=== PATIENT | female | born 1955 | race Caucasian/White ===

== ENCOUNTER 2020-01-12 15:49 | Inpatient (IN) | payer BC, MEDICARE ==
[~2020-01-12] VITALS: Ht 157.5 cm; Wt 55.3 kg
[2020-01-12 17:15] VITALS: BP 121/64
[2020-01-12] MEDS ORDERED: DEXTRAN 70 0.1%/HYPROMELL 0.3% 0.9 ML OPHTHALMIC SOLUTION [PF] OU PRN (18:00)
[2020-01-12] MEDS ORDERED: HYDROCODONE/ACETAMINOPHEN 10-325 MG TABLET PO PRN (18:00)
[2020-01-12] MEDS ORDERED: TraZODone HCL 50 MG TABLET PO PRN (18:00)
[2020-01-12] MEDS ORDERED: HYDROCODONE/ACETAMINOPHEN 5-325 MG TABLET PO PRN (18:00)
[2020-01-12] MEDS ORDERED: MULTIVITAMINS WITH MINERALS, THERAPEUTIC TABLET PO ONE (18:00)
[2020-01-12] MEDS ORDERED: BISACODYL 10 MG RECTAL RECTAL SUPPOSITORY PR PRN (18:00)
[2020-01-12] MEDS: OMEPRAZOLE 20 MG CAPSULE PO SCH (18:28)
[2020-01-12 18:52] LABS: GLUCOMETER DEV NAME(LOC) 6N.1; GLUCOSE,POINT OF CARE 113 MG/DL (70-110)
[2020-01-12] MEDS: DOCUSATE SODIUM 100 MG CAPSULE PO SCH (20:21)
[2020-01-12] MEDS: ENOXAPARIN SODIUM 40 MG/0.4 ML PF SYRINGE SQ SCH (20:21)
[2020-01-12] MEDS: LevETIRAcetam 500 MG TABLET PO SCH (20:21)
[2020-01-12] MEDS: TAMSULOSIN HCL 0.4 MG CAPSULE PO SCH (20:21)
[2020-01-12] MEDS ORDERED: SENNA 187 MG TABLET PO SCH (21:00)
[2020-01-13 05:00] VITALS: BP 113/61
[2020-01-13] MEDS ORDERED: DEXAMETHASONE 2 MG TABLET PO ONE (09:00)
[2020-01-13 09:02] VITALS: BP 106/62
[2020-01-13 09:23] LABS: HEMATOCRIT 34.8 % (36-46); HEMOGLOBIN 11.4 g/dL (12.0-16.0); MEAN CORPUSCULAR HEMOGLOBIN 27.1 pg (26.0-34.0); MEAN CORPUSCULAR HGB CONC 32.7 G/dL (31.0-37.0); MEAN CORPUSCULAR VOLUME 83 fL (80-100); PLATELET COUNT (AUTO) 123 K/uL (150-450); RED BLOOD CELL COUNT(AUTO) 4.19 MIL/uL (4.00-5.20); RED CELL DISTRIBUTION WIDTH 17.7 % (11.5-14.5)
[2020-01-13 09:33] LABS: ALANINE AMINOTRANSFERASE 104 U/L (12-78); ALBUMIN 2.5 g/dL (3.4-5.0); ALKALINE PHOSPHATASE 96 U/L (46-116); ANION GAP 8 mmol/L (8-16); ASPARTATE AMINOTRANSFERASE 33 U/L (15-37); BILIRUBIN,TOTAL 0.7 mg/dL (0.1-1.0); CALCIUM, TOTAL 8.5 mg/dL (8.8-10.5); CARBON DIOXIDE 28 mmol/L (22-29); CHLORIDE 103 mmol/L (98-107); CREATININE 0.31 mg/dL (0.60-1.30); GLOMERULAR FILTR. RATE CALC > 60 mL/min (>60); GLUCOSE,RANDOM 86 mg/dL (70-110); POTASSIUM 3.5 mmol/L (3.5-5.1); SODIUM SERUM 139 mmol/L (136-145); TOTAL PROTEIN, SERUM 5.5 g/dL (6.4-8.2); UREA NITROGEN, BLOOD 25 mg/dL (7-18)
[2020-01-13 10:11] VITALS: BP 128/63
[2020-01-13] MEDS: LevETIRAcetam 500 MG TABLET PO SCH ×2 (10:12→20:44)
[2020-01-13] MEDS: OMEPRAZOLE 20 MG CAPSULE PO SCH (10:12)
[2020-01-13] MEDS: LOSARTAN POTASSIUM 25 MG TABLET PO SCH (10:12)
[2020-01-13] MEDS: AmLODIPine BESYLATE 10 MG TABLET PO SCH (10:12)
[2020-01-13] MEDS: ENOXAPARIN SODIUM 40 MG/0.4 ML PF SYRINGE SQ SCH (10:13)
[2020-01-13] MEDS: DOCUSATE SODIUM 100 MG CAPSULE PO SCH (10:13)
[2020-01-13 11:40] LABS: BAND NEUTROPHILS % (MANUAL) 1 % (0-5); LYMPHOCYTES % (MANUAL) 65 % (22-44); MONOCYTES % (MANUAL) 5 % (2-9); SEGMENTED NEUTROPHILS % 29 % (40-70)
[2020-01-13 11:42] LABS: WBC MORPHOLOGY SMUDGE CELLS PRESENT
[2020-01-13 12:42] LABS: APPEARANCE,URINE CLOUDY (CLEAR); BILIRUBIN,URINE NEGATIVE (NEGATIVE); GLUCOSE, URINE (UA) NEGATIVE (NEGATIVE); KETONES,URINE NEGATIVE (NEGATIVE); LEUKOCYTE ESTERASE ,URINE LARGE (NEGATIVE); NITRATE,URINE POSITIVE (NEGATIVE); OCCULT BLOOD,URINE SMALL (NEGATIVE); PH,URINE 5.5 (5.0-8.0); PROTEIN,URINE NEGATIVE (NEGATIVE); UROBILINOGEN,URINE 0.2 mg/dL (<=1.0)
[2020-01-13 13:18] LABS: BACTERIA,URINE Moderate /HPF (None Seen); SQUAMOUS EPITHELIAL CELL,UR Few /LPF (None Seen); WBC,URINE 51-100 /HPF (0-5)
[2020-01-13] MEDS ORDERED: SENNA 187 MG TABLET PO PRN (15:30)
[2020-01-13 16:00] VITALS: BP 105/61
[2020-01-13] MEDS: TAMSULOSIN HCL 0.4 MG CAPSULE PO SCH (20:45)
[2020-01-13 23:33] VITALS: BP 113/63
[2020-01-14 09:00] VITALS: BP 100/58
[2020-01-14] MEDS: LOSARTAN POTASSIUM 25 MG TABLET PO SCH (09:49)
[2020-01-14] MEDS: ENOXAPARIN SODIUM 40 MG/0.4 ML PF SYRINGE SQ SCH (09:49)
[2020-01-14] MEDS: AmLODIPine BESYLATE 10 MG TABLET PO SCH (09:49)
[2020-01-14] MEDS: LevETIRAcetam 500 MG TABLET PO SCH ×2 (09:50→20:12)
[2020-01-14] MEDS: MULTIVITAMINS WITH MINERALS, THERAPEUTIC TABLET PO SCH (09:51)
[2020-01-14] MEDS: OMEPRAZOLE 20 MG CAPSULE PO SCH (09:51)
[2020-01-14 15:10] VITALS: BP 107/56
[2020-01-14] MEDS: TAMSULOSIN HCL 0.4 MG CAPSULE PO SCH (20:12)
[2020-01-15 01:30] VITALS: BP 110/66
[2020-01-15 08:00] VITALS: BP 135/67
[2020-01-15] MEDS: LOSARTAN POTASSIUM 25 MG TABLET PO SCH (08:36)
[2020-01-15] MEDS: ENOXAPARIN SODIUM 40 MG/0.4 ML PF SYRINGE SQ SCH (08:36)
[2020-01-15] MEDS: LevETIRAcetam 500 MG TABLET PO SCH ×2 (08:36→21:13)
[2020-01-15] MEDS: MULTIVITAMINS WITH MINERALS, THERAPEUTIC TABLET PO SCH (08:36)
[2020-01-15] MEDS: AmLODIPine BESYLATE 10 MG TABLET PO SCH (08:36)
[2020-01-15] MEDS: OMEPRAZOLE 20 MG CAPSULE PO SCH (08:36)
[2020-01-15] MEDS ORDERED: MECLIZINE HCL 25 MG TABLET PO PRN (12:00)
[2020-01-15 16:13] VITALS: BP 118/66
[2020-01-15] MEDS: TAMSULOSIN HCL 0.4 MG CAPSULE PO SCH (21:13)
[2020-01-15 23:59] VITALS: BP 123/67
[2020-01-16 07:55] VITALS: BP 128/66
[2020-01-16] MEDS: AmLODIPine BESYLATE 10 MG TABLET PO SCH (08:23)
[2020-01-16] MEDS: OMEPRAZOLE 20 MG CAPSULE PO SCH (08:23)
[2020-01-16] MEDS: LevETIRAcetam 500 MG TABLET PO SCH ×2 (08:23→21:27)
[2020-01-16] MEDS: MULTIVITAMINS WITH MINERALS, THERAPEUTIC TABLET PO SCH (08:23)
[2020-01-16] MEDS: LOSARTAN POTASSIUM 25 MG TABLET PO SCH (08:23)
[2020-01-16] MEDS: ENOXAPARIN SODIUM 40 MG/0.4 ML PF SYRINGE SQ SCH (08:23)
[2020-01-16] MEDS: SULFAMETHOX/TRIMETH DS 800-160 MG/TABLET PO SCH ×2 (13:15→21:27)
[2020-01-16 16:00] VITALS: BP 108/55
[2020-01-16] MEDS: DOCUSATE SODIUM 100 MG CAPSULE PO PRN (21:27)
[2020-01-16] MEDS: TAMSULOSIN HCL 0.4 MG CAPSULE PO SCH (21:27)
[2020-01-16] MEDS: ZINC OXIDE 40%/COD LIVER OIL 57 GM PASTE TP PRN (21:32)
[2020-01-17 01:21] VITALS: BP 106/57
[2020-01-17 07:50] VITALS: BP 115/67
[2020-01-17 07:51] LABS: ANION GAP 6 mmol/L (8-16); CALCIUM, TOTAL 8.6 mg/dL (8.8-10.5); CARBON DIOXIDE 29 mmol/L (22-29); CHLORIDE 104 mmol/L (98-107); CREATININE 0.63 mg/dL (0.60-1.30); GLOMERULAR FILTR. RATE CALC > 60 mL/min (>60); GLUCOSE,RANDOM 93 mg/dL (70-110); POTASSIUM 3.4 mmol/L (3.5-5.1); SODIUM SERUM 139 mmol/L (136-145); UREA NITROGEN, BLOOD 16 mg/dL (7-18)
[2020-01-17] MEDS: MULTIVITAMINS WITH MINERALS, THERAPEUTIC TABLET PO SCH (08:54)
[2020-01-17] MEDS: LevETIRAcetam 500 MG TABLET PO SCH ×2 (08:54→20:22)
[2020-01-17] MEDS: ENOXAPARIN SODIUM 40 MG/0.4 ML PF SYRINGE SQ SCH (08:54)
[2020-01-17] MEDS: AmLODIPine BESYLATE 10 MG TABLET PO SCH (08:55)
[2020-01-17] MEDS: OMEPRAZOLE 20 MG CAPSULE PO SCH (08:55)
[2020-01-17] MEDS: SULFAMETHOX/TRIMETH DS 800-160 MG/TABLET PO SCH ×2 (08:55→20:23)
[2020-01-17] MEDS: LOSARTAN POTASSIUM 25 MG TABLET PO SCH (08:55)
[2020-01-17 15:00] VITALS: BP 91/51
[2020-01-17 15:30] VITALS: BP 108/57
[2020-01-17 15:32] VITALS: BP 125/56
[2020-01-17] MEDS: TAMSULOSIN HCL 0.4 MG CAPSULE PO SCH (20:25)
[2020-01-17 23:40] VITALS: BP 97/52
[2020-01-17] MEDS: ACETAMINOPHEN 325 MG TABLET PO PRN (23:40)
[2020-01-18] MEDS: OMEPRAZOLE 20 MG CAPSULE PO SCH (08:39)
[2020-01-18] MEDS: ENOXAPARIN SODIUM 40 MG/0.4 ML PF SYRINGE SQ SCH (08:39)
[2020-01-18] MEDS: MULTIVITAMINS WITH MINERALS, THERAPEUTIC TABLET PO SCH (08:39)
[2020-01-18] MEDS: AmLODIPine BESYLATE 10 MG TABLET PO SCH (08:39)
[2020-01-18] MEDS: LevETIRAcetam 500 MG TABLET PO SCH ×2 (08:39→20:54)
[2020-01-18] MEDS: LOSARTAN POTASSIUM 25 MG TABLET PO SCH (08:39)
[2020-01-18] MEDS: SULFAMETHOX/TRIMETH DS 800-160 MG/TABLET PO SCH (08:40)
[2020-01-18 09:00] VITALS: BP 116/63
[2020-01-18 09:20] LABS: ANION GAP 7 mmol/L (8-16); CARBON DIOXIDE 26 mmol/L (22-29); CHLORIDE 104 mmol/L (98-107); CREATININE 0.36 mg/dL (0.60-1.30); GLOMERULAR FILTR. RATE CALC > 60 mL/min (>60); GLUCOSE,RANDOM 91 mg/dL (70-110); POTASSIUM 3.7 mmol/L (3.5-5.1); SODIUM SERUM 137 mmol/L (136-145); UREA NITROGEN, BLOOD 14 mg/dL (7-18)
[2020-01-18] MEDS: AMOX TR/POT CLAV 875 MG/125 MG TABLET PO SCH ×2 (11:35→20:54)
[2020-01-18 12:39] LABS: BASOPHILS % (AUTO) 0.1 % (0.0-2.0); EOSINOPHILS % (AUTO) 0.2 % (1.0-6.0); HEMATOCRIT 36.7 % (36-46); HEMOGLOBIN 12.1 g/dL (12.0-16.0); LYMPHOCYTES % (AUTO) 72.4 % (22.0-44.0); MEAN CORPUSCULAR HEMOGLOBIN 27.6 pg (26.0-34.0); MEAN CORPUSCULAR HGB CONC 32.9 G/dL (31.0-37.0); MEAN CORPUSCULAR VOLUME 84 fL (80-100); MONOCYTES # (AUTO) 0.4 K/uL (0.1-1.0); MONOCYTES % (AUTO) 1.4 % (2.0-9.0); NEUTROPHILS # (AUTO) 7.5 K/uL (1.8-7.7); NEUTROPHILS % (AUTO) 25.9 % (40.0-70.0); PLATELET COUNT (AUTO) 135 K/uL (150-450); RED BLOOD CELL COUNT(AUTO) 4.38 MIL/uL (4.00-5.20)
[2020-01-18 16:09] VITALS: BP 102/61
[2020-01-18] MEDS: DOCUSATE SODIUM 100 MG CAPSULE PO PRN (20:54)
[2020-01-18] MEDS: TAMSULOSIN HCL 0.4 MG CAPSULE PO SCH (20:54)
[2020-01-18] MEDS: ZINC OXIDE 40%/COD LIVER OIL 57 GM PASTE TP PRN (21:10)
[2020-01-19] VITALS: BP 121/63
[2020-01-19] MEDS: OMEPRAZOLE 20 MG CAPSULE PO SCH (08:30)
[2020-01-19] MEDS: MULTIVITAMINS WITH MINERALS, THERAPEUTIC TABLET PO SCH (08:30)
[2020-01-19] MEDS: LOSARTAN POTASSIUM 25 MG TABLET PO SCH (08:30)
[2020-01-19] MEDS: AmLODIPine BESYLATE 10 MG TABLET PO SCH (08:30)
[2020-01-19] MEDS: LevETIRAcetam 500 MG TABLET PO SCH ×2 (08:31→20:50)
[2020-01-19] MEDS: AMOX TR/POT CLAV 875 MG/125 MG TABLET PO SCH ×2 (08:31→20:50)
[2020-01-19 09:39] LABS: BASOPHILS % (AUTO) 0.1 % (0.0-2.0); EOSINOPHILS % (AUTO) 0.4 % (1.0-6.0); HEMOGLOBIN 11.7 g/dL (12.0-16.0); LYMPHOCYTES # (AUTO) 14.3 K/uL (1.0-4.8); LYMPHOCYTES % (AUTO) 73.9 % (22.0-44.0); MEAN CORPUSCULAR HEMOGLOBIN 27.7 pg (26.0-34.0); MEAN CORPUSCULAR HGB CONC 32.6 G/dL (31.0-37.0); MEAN CORPUSCULAR VOLUME 85 fL (80-100); MONOCYTES # (AUTO) 0.3 K/uL (0.1-1.0); MONOCYTES % (AUTO) 1.6 % (2.0-9.0); NEUTROPHILS # (AUTO) 4.6 K/uL (1.8-7.7); PLATELET COUNT (AUTO) 124 K/uL (150-450); RED BLOOD CELL COUNT(AUTO) 4.24 MIL/uL (4.00-5.20); RED CELL DISTRIBUTION WIDTH 18.2 % (11.5-14.5)
[2020-01-19 12:50] VITALS: BP 118/66
[2020-01-19 19:59] VITALS: BP 112/55
[2020-01-19] MEDS: TAMSULOSIN HCL 0.4 MG CAPSULE PO SCH (20:50)
[2020-01-19 23:56] VITALS: BP 108/57
[2020-01-20] MEDS: AmLODIPine BESYLATE 10 MG TABLET PO SCH (08:23)
[2020-01-20] MEDS: LOSARTAN POTASSIUM 25 MG TABLET PO SCH (08:23)
[2020-01-20] MEDS: AMOX TR/POT CLAV 875 MG/125 MG TABLET PO SCH ×2 (08:23→20:07)
[2020-01-20] MEDS: LevETIRAcetam 500 MG TABLET PO SCH ×2 (08:23→20:07)
[2020-01-20] MEDS: OMEPRAZOLE 20 MG CAPSULE PO SCH (08:24)
[2020-01-20] MEDS: MULTIVITAMINS WITH MINERALS, THERAPEUTIC TABLET PO SCH (08:24)
[2020-01-20 09:12] VITALS: BP 111/71
[2020-01-20 16:00] VITALS: BP 108/64
[2020-01-20] MEDS: TAMSULOSIN HCL 0.4 MG CAPSULE PO SCH (20:07)
[2020-01-20] MEDS: ACETAMINOPHEN 325 MG TABLET PO PRN (22:11)
[2020-01-20 23:21] VITALS: BP 110/56
[2020-01-21 07:21] VITALS: BP 127/73
[2020-01-21] MEDS: OMEPRAZOLE 20 MG CAPSULE PO SCH (08:47)
[2020-01-21] MEDS: MULTIVITAMINS WITH MINERALS, THERAPEUTIC TABLET PO SCH (08:47)
[2020-01-21] MEDS: AMOX TR/POT CLAV 875 MG/125 MG TABLET PO SCH ×2 (08:47→20:35)
[2020-01-21] MEDS: LOSARTAN POTASSIUM 25 MG TABLET PO SCH (08:47)
[2020-01-21] MEDS: AmLODIPine BESYLATE 10 MG TABLET PO SCH (08:47)
[2020-01-21] MEDS: LevETIRAcetam 500 MG TABLET PO SCH ×2 (08:47→20:35)
[2020-01-21 15:20] VITALS: BP 108/61
[2020-01-21] MEDS: ACETAMINOPHEN 325 MG TABLET PO PRN (17:23)
[2020-01-21] MEDS: TAMSULOSIN HCL 0.4 MG CAPSULE PO SCH (20:36)
[2020-01-21 23:15] VITALS: BP 114/66
[2020-01-22] MEDS ORDERED: OMEP20 PO (01:06)
[2020-01-22] MEDS ORDERED: EXEM25 PO (01:06)
[2020-01-22] MEDS ORDERED: LOSA25TA71 PO (01:06)
[2020-01-22] MEDS: ACETAMINOPHEN 325 MG TABLET PO PRN ×3 (02:31→22:31)
[2020-01-22 07:23] VITALS: BP 105/50
[2020-01-22] MEDS: LevETIRAcetam 500 MG TABLET PO SCH ×2 (08:17→20:59)
[2020-01-22] MEDS: OMEPRAZOLE 20 MG CAPSULE PO SCH (08:17)
[2020-01-22] MEDS: AmLODIPine BESYLATE 10 MG TABLET PO SCH (08:17)
[2020-01-22] MEDS: AMOX TR/POT CLAV 875 MG/125 MG TABLET PO SCH ×2 (08:17→20:59)
[2020-01-22] MEDS: MULTIVITAMINS WITH MINERALS, THERAPEUTIC TABLET PO SCH (08:17)
[2020-01-22] MEDS: LOSARTAN POTASSIUM 25 MG TABLET PO SCH (08:18)
[2020-01-22 15:52] VITALS: BP 107/57
[2020-01-22] MEDS: TAMSULOSIN HCL 0.4 MG CAPSULE PO SCH (20:59)
[2020-01-23 02:09] VITALS: BP 111/66
[2020-01-23] MEDS: MULTIVITAMINS WITH MINERALS, THERAPEUTIC TABLET PO SCH (08:25)
[2020-01-23] MEDS: OMEPRAZOLE 20 MG CAPSULE PO SCH (08:28)
[2020-01-23] MEDS: AMOX TR/POT CLAV 875 MG/125 MG TABLET PO SCH ×2 (08:28→20:50)
[2020-01-23] MEDS: LevETIRAcetam 500 MG TABLET PO SCH ×2 (08:28→20:50)
[2020-01-23] MEDS: LOSARTAN POTASSIUM 25 MG TABLET PO SCH (09:00)
[2020-01-23] MEDS: AmLODIPine BESYLATE 10 MG TABLET PO SCH (09:00)
[2020-01-23 15:46] VITALS: BP 124/73
[2020-01-23 16:00] VITALS: BP 124/73
[2020-01-23] MEDS: TAMSULOSIN HCL 0.4 MG CAPSULE PO SCH (20:50)
[2020-01-23] MEDS: ACETAMINOPHEN 325 MG TABLET PO PRN (21:54)
[2020-01-24 01:38] VITALS: BP 114/67
[2020-01-24] MEDS: ACETAMINOPHEN 325 MG TABLET PO PRN ×3 (03:26→20:59)
[2020-01-24 08:21] LABS: HEMATOCRIT 30.9 % (36-46); HEMOGLOBIN 10.5 g/dL (12.0-16.0); MEAN CORPUSCULAR HEMOGLOBIN 28.5 pg (26.0-34.0); MEAN CORPUSCULAR VOLUME 84 fL (80-100); PLATELET COUNT (AUTO) 138 K/uL (150-450); RED BLOOD CELL COUNT(AUTO) 3.69 MIL/uL (4.00-5.20); RED CELL DISTRIBUTION WIDTH 18.9 % (11.5-14.5)
[2020-01-24 08:35] LABS: ALANINE AMINOTRANSFERASE 60 U/L (12-78); ALBUMIN 2.9 g/dL (3.4-5.0); ALKALINE PHOSPHATASE 115 U/L (46-116); ANION GAP 7 mmol/L (8-16); ASPARTATE AMINOTRANSFERASE 39 U/L (15-37); BILIRUBIN,TOTAL 0.3 mg/dL (0.1-1.0); CALCIUM, TOTAL 8.9 mg/dL (8.8-10.5); CARBON DIOXIDE 29 mmol/L (22-29); CHLORIDE 108 mmol/L (98-107); CREATININE 0.51 mg/dL (0.60-1.30); GLOMERULAR FILTR. RATE CALC > 60 mL/min (>60); GLUCOSE,RANDOM 99 mg/dL (70-110); POTASSIUM 3.6 mmol/L (3.5-5.1); SODIUM SERUM 144 mmol/L (136-145); UREA NITROGEN, BLOOD 22 mg/dL (7-18)
[2020-01-24] MEDS: LOSARTAN POTASSIUM 25 MG TABLET PO SCH (08:43)
[2020-01-24] MEDS: AmLODIPine BESYLATE 10 MG TABLET PO SCH (08:44)
[2020-01-24] MEDS: AMOX TR/POT CLAV 875 MG/125 MG TABLET PO SCH ×2 (08:44→20:33)
[2020-01-24] MEDS: OMEPRAZOLE 20 MG CAPSULE PO SCH (08:44)
[2020-01-24] MEDS: MULTIVITAMINS WITH MINERALS, THERAPEUTIC TABLET PO SCH (08:44)
[2020-01-24] MEDS: LevETIRAcetam 500 MG TABLET PO SCH ×2 (08:44→20:34)
[2020-01-24] MEDS: DOCUSATE SODIUM 100 MG CAPSULE PO PRN (08:48)
[2020-01-24 09:00] VITALS: BP 139/74
[2020-01-24 09:30] LABS: BAND NEUTROPHILS % (MANUAL) 1 % (0-5); LYMPHOCYTES % (MANUAL) 71 % (22-44); MONOCYTES % (MANUAL) 1 % (2-9); SEGMENTED NEUTROPHILS % 27 % (40-70); WBC MORPHOLOGY SMUDGE CELLS PRESENT
[2020-01-24 15:15] VITALS: BP 103/48
[2020-01-24] MEDS: SENNA 187 MG TABLET PO SCH (20:34)
[2020-01-24] MEDS: TAMSULOSIN HCL 0.4 MG CAPSULE PO SCH (20:34)
[2020-01-25] VITALS: BP 122/61
[2020-01-25] MEDS ORDERED: AMLO10TA7 PO (03:46)
[2020-01-25] MEDS ORDERED: LEVE500T53 PO (03:46)
[2020-01-25] MEDS ORDERED: MULT-1239 PO (03:46)
[2020-01-25] MEDS ORDERED: TAMS-13 PO (03:46)
[2020-01-25] MEDS: ACETAMINOPHEN 325 MG TABLET PO PRN ×2 (04:22→20:53)
[2020-01-25 07:30] VITALS: BP 115/63
[2020-01-25] MEDS: LOSARTAN POTASSIUM 25 MG TABLET PO SCH (08:25)
[2020-01-25] MEDS: AMOX TR/POT CLAV 875 MG/125 MG TABLET PO SCH (08:25)
[2020-01-25] MEDS: OMEPRAZOLE 20 MG CAPSULE PO SCH (08:26)
[2020-01-25] MEDS: AmLODIPine BESYLATE 10 MG TABLET PO SCH (08:26)
[2020-01-25] MEDS: LevETIRAcetam 500 MG TABLET PO SCH ×2 (08:26→20:51)
[2020-01-25] MEDS: MULTIVITAMINS WITH MINERALS, THERAPEUTIC TABLET PO SCH (08:27)
[2020-01-25 17:00] VITALS: BP 100/59
[2020-01-25] MEDS: TAMSULOSIN HCL 0.4 MG CAPSULE PO SCH (20:51)
[2020-01-25] MEDS: SENNA 187 MG TABLET PO SCH (20:51)
[2020-01-25 23:10] VITALS: BP 117/60
[2020-01-26] MEDS: ACETAMINOPHEN 325 MG TABLET PO PRN ×3 (01:18→23:46)
[2020-01-26 08:05] VITALS: BP 101/67
[2020-01-26] MEDS: AmLODIPine BESYLATE 10 MG TABLET PO SCH (09:05)
[2020-01-26] MEDS: LevETIRAcetam 500 MG TABLET PO SCH ×2 (09:05→20:03)
[2020-01-26] MEDS: LOSARTAN POTASSIUM 25 MG TABLET PO SCH (09:05)
[2020-01-26] MEDS: MULTIVITAMINS WITH MINERALS, THERAPEUTIC TABLET PO SCH (09:06)
[2020-01-26] MEDS: OMEPRAZOLE 20 MG CAPSULE PO SCH (09:06)
[2020-01-26 16:31] VITALS: BP 117/54
[2020-01-26] MEDS: SENNA 187 MG TABLET PO SCH (20:03)
[2020-01-26] MEDS: TAMSULOSIN HCL 0.4 MG CAPSULE PO SCH (20:03)
[2020-01-26 23:46] VITALS: BP 119/76
[2020-01-27] MEDS: ACETAMINOPHEN 325 MG TABLET PO PRN ×3 (04:48→22:21)
[2020-01-27 07:59] VITALS: BP 119/71
[2020-01-27] MEDS: LOSARTAN POTASSIUM 25 MG TABLET PO SCH (08:39)
[2020-01-27] MEDS: LevETIRAcetam 500 MG TABLET PO SCH ×2 (08:39→20:47)
[2020-01-27] MEDS: OMEPRAZOLE 20 MG CAPSULE PO SCH (08:40)
[2020-01-27] MEDS: AmLODIPine BESYLATE 10 MG TABLET PO SCH (08:40)
[2020-01-27] MEDS: MULTIVITAMINS WITH MINERALS, THERAPEUTIC TABLET PO SCH (08:40)
[2020-01-27 15:10] VITALS: BP 118/64
[2020-01-27 16:10] VITALS: BP 118/64
[2020-01-27] MEDS: TAMSULOSIN HCL 0.4 MG CAPSULE PO SCH (20:47)
[2020-01-27] MEDS: SENNA 187 MG TABLET PO SCH (20:47)
[2020-01-27 23:21] VITALS: BP 128/69
[2020-01-28] MEDS: ACETAMINOPHEN 325 MG TABLET PO PRN ×3 (03:04→20:37)
[2020-01-28] MEDS: OMEPRAZOLE 20 MG CAPSULE PO SCH (08:15)
[2020-01-28] MEDS: LevETIRAcetam 500 MG TABLET PO SCH ×2 (08:15→20:15)
[2020-01-28] MEDS: MULTIVITAMINS WITH MINERALS, THERAPEUTIC TABLET PO SCH (08:16)
[2020-01-28] MEDS: LOSARTAN POTASSIUM 25 MG TABLET PO SCH (08:16)
[2020-01-28] MEDS: AmLODIPine BESYLATE 10 MG TABLET PO SCH (08:16)
[2020-01-28 08:51] VITALS: BP 117/98
[2020-01-28 15:15] VITALS: BP 134/69
[2020-01-28 17:00] LABS: APPEARANCE,URINE CLOUDY (CLEAR); BILIRUBIN,URINE NEGATIVE (NEGATIVE); GLUCOSE, URINE (UA) NEGATIVE (NEGATIVE); KETONES,URINE NEGATIVE (NEGATIVE); LEUKOCYTE ESTERASE ,URINE SMALL (NEGATIVE); NITRATE,URINE NEGATIVE (NEGATIVE); OCCULT BLOOD,URINE NEGATIVE (NEGATIVE); PROTEIN,URINE NEGATIVE (NEGATIVE); UROBILINOGEN,URINE 0.2 mg/dL (<=1.0)
[2020-01-28 17:17] LABS: BACTERIA,URINE Many /HPF (None Seen); RBC,URINE None Seen /HPF (0-2)
[2020-01-28] MEDS: TAMSULOSIN HCL 0.4 MG CAPSULE PO SCH (20:15)
[2020-01-28] MEDS: SENNA 187 MG TABLET PO SCH (20:15)
[2020-01-29 01:56] VITALS: BP 110/65
[2020-01-29 07:15] VITALS: BP 122/70
[2020-01-29 08:36] LABS: ANION GAP 9 mmol/L (8-16); CALCIUM, TOTAL 9.1 mg/dL (8.8-10.5); CARBON DIOXIDE 28 mmol/L (22-29); CHLORIDE 109 mmol/L (98-107); CREATININE 0.29 mg/dL (0.60-1.30); GLOMERULAR FILTR. RATE CALC > 60 mL/min (>60); GLUCOSE,RANDOM 97 mg/dL (70-110); POTASSIUM 3.4 mmol/L (3.5-5.1); SODIUM SERUM 146 mmol/L (136-145); UREA NITROGEN, BLOOD 11 mg/dL (7-18)
[2020-01-29 08:42] LABS: BASOPHILS % (AUTO) 0.3 % (0.0-2.0); EOSINOPHILS % (AUTO) 1.2 % (1.0-6.0); HEMATOCRIT 32.2 % (36-46); LYMPHOCYTES # (AUTO) 6.1 K/uL (1.0-4.8); LYMPHOCYTES % (AUTO) 74.3 % (22.0-44.0); MEAN CORPUSCULAR HGB CONC 34.3 G/dL (31.0-37.0); MEAN CORPUSCULAR VOLUME 85 fL (80-100); MONOCYTES # (AUTO) 0.2 K/uL (0.1-1.0); MONOCYTES % (AUTO) 2.9 % (2.0-9.0); NEUTROPHILS # (AUTO) 1.7 K/uL (1.8-7.7); NEUTROPHILS % (AUTO) 21.3 % (40.0-70.0); PLATELET COUNT (AUTO) 148 K/uL (150-450); RED BLOOD CELL COUNT(AUTO) 3.81 MIL/uL (4.00-5.20)
[2020-01-29] MEDS: OMEPRAZOLE 20 MG CAPSULE PO SCH (09:59)
[2020-01-29] MEDS: LOSARTAN POTASSIUM 25 MG TABLET PO SCH (09:59)
[2020-01-29] MEDS: MULTIVITAMINS WITH MINERALS, THERAPEUTIC TABLET PO SCH (09:59)
[2020-01-29] MEDS: AmLODIPine BESYLATE 10 MG TABLET PO SCH (09:59)
[2020-01-29] MEDS: LevETIRAcetam 500 MG TABLET PO SCH ×2 (09:59→20:27)
[2020-01-29] MEDS ORDERED: POTASSIUM CHLORIDE 20 MEQ ER TABLET PO ONE (15:00)
[2020-01-29 15:30] VITALS: BP 117/58
[2020-01-29] MEDS: TAMSULOSIN HCL 0.4 MG CAPSULE PO SCH (20:27)
[2020-01-29] MEDS: ACETAMINOPHEN 325 MG TABLET PO PRN (20:27)
[2020-01-29] MEDS: SENNA 187 MG TABLET PO SCH (20:27)
[2020-01-30 00:34] VITALS: BP 117/68
[2020-01-30] MEDS: ACETAMINOPHEN 325 MG TABLET PO PRN (00:34)
[2020-01-30 07:10] VITALS: BP 123/66
[2020-01-30] MEDS: AmLODIPine BESYLATE 10 MG TABLET PO SCH (07:47)
[2020-01-30] MEDS: MULTIVITAMINS WITH MINERALS, THERAPEUTIC TABLET PO SCH (07:47)
[2020-01-30] MEDS: LevETIRAcetam 500 MG TABLET PO SCH (07:47)
[2020-01-30] MEDS: OMEPRAZOLE 20 MG CAPSULE PO SCH (07:47)
[2020-01-30] MEDS: LOSARTAN POTASSIUM 25 MG TABLET PO SCH (07:48)
== END 2020-01-30 11:00 | disposition home or self-care (01) | DRG 81 ==
LOC: 2WR 17:02
PROVIDERS: ADMIT Physical Medicine & Rehabilitation; ATTEND Physical Medicine & Rehabilitation
DX: G93.6 Cerebral edema (principal); C79.31 Secondary malignant neoplasm of brain; C91.10 Chronic lymphocytic leukemia of B-cell type not having achieved remission; N39.0 Urinary tract infection, site not specified; C50.919 Malignant neoplasm of unspecified site of unspecified female breast; D63.8 Anemia in other chronic diseases classified elsewhere; G62.0 Drug-induced polyneuropathy; T45.1X5A Adverse effect of antineoplastic and immunosuppressive drugs, initial encounter; I10 Essential (primary) hypertension; I89.0 Lymphedema, not elsewhere classified; I82.461 Acute embolism and thrombosis of right calf muscular vein; K59.00 Constipation, unspecified; R32 Unspecified urinary incontinence; D69.6 Thrombocytopenia, unspecified; Z90.13 Acquired absence of bilateral breasts and nipples; Z98.51 Tubal ligation status; M54.5 Low back pain; R26.89 Other abnormalities of gait and mobility
CPT/HCPCS: 72070; 72100; 83605; 84132; 84145; 87040; 87081; 87086; 92507; 92523; 93970; 93971; 97110; 97112; 97116; 97163; 97166; 97530; 97535; 99366; J1650; J8540